=== PATIENT | male | born 1970 | race African-American/Black ===

== ENCOUNTER 2018-11-24 15:25 | Emergency (ER) | payer SELFPAY ==
[~2018-11-24] VITALS: Ht 167.6 cm; Wt 65.8 kg
[2018-11-24 15:34] VITALS: BP 107/62
== END 2018-11-24 20:00 | disposition home or self-care (01) ==
LOC: ER 15:26
DX: M54.42 Lumbago with sciatica, left side (principal); Z88.0 Allergy status to penicillin
CPT/HCPCS: 72131

== ENCOUNTER 2018-12-30 12:10 | Emergency (ER) | payer SELFPAY ==
[~2018-12-30] VITALS: Ht 167.6 cm; Wt 63.5 kg
[2018-12-30 14:15] VITALS: BP 120/83
== END 2018-12-30 14:27 | disposition home or self-care (01) ==
LOC: ER 12:10
DX: R51 Headache (principal); Z77.098 Contact with and (suspected) exposure to other hazardous, chiefly nonmedicinal, chemicals; Z88.0 Allergy status to penicillin